=== PATIENT | male | born 1955 | race Caucasian/White ===

== ENCOUNTER → 2021-08-23 | Outpatient (CLI) | payer BC, MEDICARE | LOC: M PLAIMG 15:30 | PROVIDERS: ATTEND Family Medicine | DX: M54.59 Other low back pain (principal) ==

== ENCOUNTER 2022-09-19 19:50 | Emergency (ER) | payer MEDICARE ==
[~2022-09-19] VITALS: Ht 167.6 cm; Wt 89.6 kg
[2022-09-19 19:53] VITALS: BP 152/71
[2022-09-19] MEDS ORDERED: METO1TAB87 PO (20:03)
[2022-09-19] MEDS ORDERED: CITA10TA6 PO (20:03)
[2022-09-19] MEDS ORDERED: ASPI-161 PO (20:03)
[2022-09-19] MEDS ORDERED: LISI5TAB11 PO (20:03)
[2022-09-19] MEDS ORDERED: ATOR40TA75 PO (20:03)
== END 2022-09-20 00:12 | disposition home or self-care (01) ==
LOC: M ED 19:50
DX: S00.03XA Contusion of scalp, initial encounter (principal); W00.0XXA Fall on same level due to ice and snow, initial encounter; Y92.410 Unspecified street and highway as the place of occurrence of the external cause; I10 Essential (primary) hypertension; F32.A Depression, unspecified; Z79.82 Long term (current) use of aspirin; Z79.899 Other long term (current) drug therapy